=== PATIENT | male | born 1980 | race Caucasian/White ===

== ENCOUNTER 2023-01-24 22:43 | Emergency (ER) | payer SELFPAY ==
[~2023-01-24] VITALS: Ht 175.3 cm; Wt 88.9 kg
[2023-01-24 23:02] VITALS: BP_SYST 104
--- NOTE | 2023-01-24 23:07 | NUR ---
Patient triaged and placed in waiting room. VSS and patient appears in no acute distress at this time. Accompanied by , awaiting available bed, and MD notified of need for MSE.
--- NOTE | 2023-01-25 02:17 | NUR ---
Patient placed in ER chair 2 for evaluation. Bed in lowest position with side rails up. Instructed patient to notify ED staff for any changes in condition or worsening of symptoms. Patient verbalized understanding.
--- NOTE | 2023-01-25 02:20 | NUR ---
COVID AND FLU SAMPLE COLLECTED AND SENT TO LAB
--- NOTE | 2023-01-25 02:26 | NUR ---
Dr. Wade at bedside examining the patient.
[2023-01-25] MEDS ORDERED: KETOROLAC TROMETHAMINE 30 MG VIAL IM ONE (02:45)
[2023-01-25] MEDS ORDERED: ACET-2634 PO (03:13)
[2023-01-25] MEDS ORDERED: NIRM1TAB5 PO (03:13)
[2023-01-25] MEDS ORDERED: NAPR-1172 PO (03:13)
--- NOTE | 2023-01-25 03:27 | NUR ---
Patient given written and verbal discharge instructions and verbalizes understanding. ER MD discussed with patient the results and treatment provided. Patient in stable condition. ID arm band removed. Rx of ACETAMINOPHEN, NAPROXEN, AND PAXLOVID given. Patient educated on pain management and to follow up with PMD. Pain Scale 0/10. Opportunity for questions provided and answered. Medication side effect fact sheet provided.
== END 2023-01-25 03:26 | disposition home or self-care (01) ==
LOC: SED 22:43
DX: U07.1 COVID-19 (principal); R05.9 Cough, unspecified; J02.9 Acute pharyngitis, unspecified; M79.10 Myalgia, unspecified site; Z79.899 Other long term (current) drug therapy
CPT/HCPCS: 99284; 87426; 86403; 36415; 96372; 87081; 87804 ×2; 71045; J1885